=== PATIENT | male | born 1965 | race Caucasian/White ===

== ENCOUNTER 2018-08-03 11:45 | Emergency (ER) | payer OTHER, SELFPAY ==
[2018-08-03 12:08] VITALS: BP 137/95; PULSE 74; RESP 16; TEMP 36.7; O2SAT 98
--- NOTE | 2018-08-03 12:30 | DI.RAD_ITS ---
SYMPTOMS/DIAGNOSIS: SHOULDER PAIN S/P FALL LEFT HUMERUS AND LEFT SHOULDER: Multiple views were obtained. No acute fracture or dislocation is seen. Mild degenerative changes are seen at the acromioclavicular joint. The glenohumeral joint appears well maintained. The bones are intact and normally mineralized. The soft tissues are unremarkable. IMPRESSION: No acute fracture or dislocation.
--- NOTE | 2018-08-03 13:35 | W.ED.GENAD ---
Discharge Plan Disposition Patient Disposition: HOME Condition: Good Discharge Details Chief Complaint: Orthopedic Clinical Impression: Acute pain of left shoulder Primary Care Provider: Blaine Manuel ED Provider: Robert Ruiz Home Meds and New Rx's Prescriptions: Continue ranitidine HCl [Zantac Maximum Strength] 150 MG tablet 150 mg PO DAILY Qty: 90 RF: 4 sertraline [Zoloft] 100 MG tablet 1.5 - 2 tab PO DAILY Qty: 180 RF: 3 levothyroxine 100 MCG tablet 100 mcg PO DAILY Qty: 90 RF: 3 ibuprofen 800 MG tablet 1 tab PO TID PRNQty: 90 RF: 0 Discharge Instructions Instructions: RICE Therapy (ED), Shoulder Pain (ED) Additional Instructions: Feel free to return for any new or worsening symptoms. otherwise if not improving follow up with ortho in 2 weeks for recheck Stand Alone Forms: Work Release Referrals: Scott Geiger MD [ [facility] STAFF PHYSICIAN] - 2 weeks (if not improving ) Discharge Data Discharge Date/Time-TO BE ENTERED AT DEPARTURE: 08/03/18 13:46 Medical Decision Making Patient presenting to the emergency department for chief complaint of fall at work due to tripping over a piece of equipment and landing on his left shoulder. Patient states that when he fell he felt a pop sensation in his left shoulder. He states that he has injured the shoulder greater than 10 years ago had no problems since but now is having difficulty moving his shoulder with some radiation of discomfort down his arm. Patient denies any loss of consciousness, severe neck or back pain physical exam shows some soft tissue tenderness to the anterior superior shoulder along with some midshaft humeral and proximal humerus discomfort. Plan to perform radiological imaging due to decreased range of motion with arm mostly held in internal rotation. Patient took ibuprofen prior to coming in states his pain is tolerable at this point Review of radiological imaging shows no acute fracture so I feel the patient is able to be safely discharged and encouraged to follow-up with orthopedist if not improving over the next couple weeks. Due to patient hearing popping sensation and decreased range of motion there is concern for possible rotator cuff injury versus contusion. Patient encouraged to return for any new or worsening symptoms. After discussion of diagnosis and plan of care patient is no further needs, questions, or concerns and states clear understanding to return to the emergency department for any worsening symptoms. Imaging Data Radiologic Study: Attestation: I personally reviewed and interpreted this imaging study as follows: Imaging: X-Ray (Left shoulder and humerus) Radiologist's impression: No acute findings noted HPI General Mode of arrival: ambulatory. Date/Time Provider Initiated Documentation: 08/03/18 12:10. Limitations to Documentation: no limitations. Information obtained by: patient and RN notes reviewed. History of Present Illness 53 year old M presents to the emergency department with the chief complaint of left shoulder pain, described as mild, with intensity rated at 4. Quality is described as aching, and is localized to the left and upper extremity. Patient started experiencing this hour(s) (2) and it has been constant. No relieving factors improve symptom(s), No exacerbating factors reported . Patient notes no other symptoms.. Patient did receive the following treatments prior to arrival, NSAID Related Data Home Medications Medication Instructions Recorded Confirmed ranitidine HCl [Zantac Maximum 150 mg PO DAILY #90 tab 01/16/17 08/03/18 Strength] levothyroxine 100 mcg PO DAILY #90 tab-cap 01/19/18 08/03/18 sertraline [Zoloft] 1.5 - 2 tab PO DAILY #180 tab-cap 01/19/18 08/03/18 ibuprofen 1 tab PO TID PRN #90 tab 05/06/18 08/03/18 Previous Rx's Medication Instructions Recorded levothyroxine 100 mcg PO DAILY #90 tab-cap 01/19/18 sertraline [Zoloft] 1.5 - 2 tab PO DAILY #180 tab-cap 01/19/18 Allergies Allergy/AdvReac Type Severity Reaction Status Date / Time No Known Allergies Allergy Unverified 05/21/18 08:29 General Stated Complaint: Orthopedic PATRICIA: 3 Review of Systems ENT Denies neck pain Cardiovascular Denies chest pain and Denies dyspnea Respiratory Denies dyspnea Gastrointestinal Denies abdominal pain, Denies nausea and Denies vomiting Musculoskeletal Reports as per HPI, Denies back pain and Denies neck pain Neurologic Denies confusion and Denies sensory deficit Psychiatric Denies confusion PFSH Family History Mother Diabetes Alcohol abuse Essential hypertension Hyperlipidemia Father Alcohol abuse Neoplasm Sister Neoplasm Grandfather Diabetes Grandfather No problems noted. Grandmother No problems noted. Grandmother No problems noted. Sister Depression Son No problems noted. Daughter No problems noted. Social History Smoking/Tobacco Use Status: Never Surgical History BACK SURGERY Exam Const General: cooperative, no acute distress and not ill appearing Orientation: alert, awake and oriented x3 HENMT Mouth: moist mucous membranes Resp Effort & Inspection: normal respiratory effort, able to speak in complete sentences and no respiratory distress Cardio Rate: regular rate Rhythm: regular rhythm Skin General skin exam: no rashes or lesions noted Neuro General: alert, awake, oriented x3, moves all extremities and no focal motor deficits Sensory Exam: no sensory deficits noted Extrem Left upper extremity: shoulder/upper arm Details: tenderness Location: of the proximal humerus, of the mid-shaft humerus and over the deltoid bursa and abnormal ROM Details: pain with active ROM Details: in ABduction and in extension Course Vital Signs Temperature 36.7 C 08/03/18 12:08 Pulse 74 08/03/18 12:08 Respiratory Rate 16 08/03/18 12:08 Blood Pressure 137/95 H 08/03/18 12:08 Pulse Oximetry 98 08/03/18 12:08 Temperature 36.7 C 08/03/18 12:08 Temperature Source Temporal Artery Scan 08/03/18 12:08 Pulse 74 08/03/18 12:08 Respiratory Rate 16 08/03/18 12:08 Respiratory Effort 08/03/18 12:13 Blood Pressure 137/95 H 08/03/18 12:08 Blood Pressure Position Sitting 08/03/18 12:08 Pulse Oximetry 98 08/03/18 12:08 Oxygen Delivery Method Room Air 08/03/18 12:08 Oxygen Flow Rate 0 08/03/18 12:08 Pain Level 3 08/03/18 12:12
== END 2018-08-03 13:46 | disposition home or self-care (01) ==
PROVIDERS: Emergency Provider Nurse Practitioner Family; PCP Family Medicine
DX: M25.512 Pain in left shoulder (principal); W01.0XXA Fall on same level from slipping, tripping and stumbling without subsequent striking against object, initial encounter; Y99.0 Civilian activity done for income or pay
CPT/HCPCS: 99283; 73030; 73060; 99282

== ENCOUNTER 2018-08-13 12:27 | Outpatient (CLI) | payer BC, SELFPAY | END 2018-08-13 12:47 | PROVIDERS: PCP Family Medicine; Visit Provider Family Medicine | DX: E11.9 Type 2 diabetes mellitus without complications (principal) | CPT/HCPCS: 36415; 83036 ==

== ENCOUNTER 2018-10-29 04:21 | Emergency (ER) | payer OTHER, SELFPAY ==
[2018-10-29 04:29] VITALS: BP 139/91; PULSE 63; RESP 18; TEMP 36.8; O2SAT 98
--- NOTE | 2018-10-29 04:53 | DI.CT_ITS ---
SYMPTOM/DIAGNOSIS: TRAUMA CRANIAL CT: Noncontrast examination was performed. There is no evidence of an intra or extra axial hemorrhage, mass or fluid collection. The normal paiz/white matter differentiation is maintained. The ventricles ar normal. There is no skull fracture. The sinuses are normal. There is no mastoid effusion. Note is made of a region or hemorrhage and soft tissue swelling over the left frontal portion of the skull. SUMMARY: Minimal left forehead hematoma/soft tissue swelling, no acute intracranial abnormality seen.
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
[2018-10-29 06:25] LABS: Bilirubin Negative (Negative); Blood Small (Negative); Clarity Clear; Glucose Negative (Negative); Ketones Negative (Negative); Leukocyte Esterase Trace (Negative); Nitrite Negative (Negative); Urobilinogen 0.2 EU/dL (Up TO 0.2); pH 5.5 (5-8)
[2018-10-29 06:32] LABS: Bacteria Rare HPF (Negative); C & S Indicated? Yes; Casts Negative LPF (Negative); Crystals Negative HPF (Negative); Epithelial Cells Rare HPF (Negative); Mucus Trace (Negative)
[2018-10-29 06:55] VITALS: BP 128/70; PULSE 84; RESP 18; TEMP 36.7; O2SAT 98
== END 2018-10-29 06:54 | disposition home or self-care (01) ==
PROVIDERS: Emergency Provider Emergency Medicine; PCP Family Medicine
DX: S00.81XA Abrasion of other part of head, initial encounter (principal); V68.5XXA Driver of heavy transport vehicle injured in noncollision transport accident in traffic accident, initial encounter; Y99.0 Civilian activity done for income or pay; S06.9X9A Unspecified intracranial injury with loss of consciousness of unspecified duration, initial encounter; R07.81 Pleurodynia
CPT/HCPCS: 99284; 70450; 71046; 81003; 81015; 87086; L0172

== ENCOUNTER 2019-01-14 01:07 | Outpatient (CLI) | payer BC, SELFPAY ==
[2019-01-14 08:41] LABS: Anion Gap 9.3 mmol/L (3-11); BUN 24 mg/dL (7-18); CO2 27.7 mmol/L (21.0-32.0); CREATININE 1.04 mg/dL (0.70-1.30); Calcium 8.9 mg/dL (8.5-10.1); Chloride 104 mmol/L (98-107); Cholesterol 231 mg/dL (50-200); Glucose 109 mg/dL (70-100); HDL Cholesterol 31 mg/dL (40-60); LDL CHOLESTEROL 138 mg/dL (<100); Potassium 4.9 mmol/L (3.5-5.1); Sodium 141 mmol/L (136-145); TSH 1.17 uIU/mL (0.358-3.74); Triglyceride 354 mg/dL (30-150)
== END 2019-01-14 01:27 ==
PROVIDERS: PCP Family Medicine; Visit Provider Family Medicine
DX: E78.5 Hyperlipidemia, unspecified (principal); E03.9 Hypothyroidism, unspecified; E66.9 Obesity, unspecified
CPT/HCPCS: 36415; 80048; 80061; 83721; 84443

== ENCOUNTER 2019-06-10 09:07 | Outpatient (CLI) | payer BC, SELFPAY ==
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
== END 2019-06-10 09:27 ==
PROVIDERS: PCP Family Medicine; Visit Provider Student in an Organized Health Care Education/Training Program
DX: M25.512 Pain in left shoulder (principal); M19.012 Primary osteoarthritis, left shoulder
CPT/HCPCS: 73030

== ENCOUNTER 2019-06-16 01:31 | Outpatient (CLI) | payer BC, SELFPAY ==
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
== END 2019-06-16 01:51 ==
PROVIDERS: PCP Family Medicine; Visit Provider Student in an Organized Health Care Education/Training Program
DX: M25.512 Pain in left shoulder (principal); M75.102 Unspecified rotator cuff tear or rupture of left shoulder, not specified as traumatic; M62.512 Muscle wasting and atrophy, not elsewhere classified, left shoulder
CPT/HCPCS: 73221

== ENCOUNTER 2019-12-21 15:13 | Outpatient (CLI) | payer BC, SELFPAY ==
--- NOTE | 2019-12-21 15:00 | DI.RAD_ITS ---
EXAM: XR SHOULDER LT COMPLETE 2+V INDICATION: pain. COMPARISON: No exams were available for comparison TECHNIQUE: 2D digital imaging was performed. FINDINGS: There is mild spurring of the AC joint and tip of the acromion. Spurring is also seen at the greate r tuberosity and inferior glenoid. Glenohumeral joint space is well maintained. IMPRESSION: Mild degenerative changes.
== END 2019-12-21 15:33 ==
PROVIDERS: PCP Family Medicine; Visit Provider Student in an Organized Health Care Education/Training Program
DX: M25.512 Pain in left shoulder (principal); M19.012 Primary osteoarthritis, left shoulder
CPT/HCPCS: 73030

== ENCOUNTER 2019-12-30 02:35 | Outpatient (CLI) | payer BC, SELFPAY ==
--- NOTE | 2019-12-30 10:45 | DI.MRI_ITS ---
EXAM: MR UPPER JOINT LT WO CLINICAL HISTORY: Subacute significant left rotator cuff tear, S46.012D,STRAIN MUSCLE/TENDON. TECHNIQUE: Multiplanar multisequence MRI was performed. COMPARISON: XR shoulder LT complete 2+V from 06/10/2019 XR SHOULDER LT COMPLETE 2+V from 12/21/2019 FINDINGS: Again noted is severe supraspinatus muscle atrophy and full-thickness tear of the supraspinatus tendo n with retraction to the level of the AC joint. There is also severe infraspinatus muscle atrophy. There is marked tendon thinning but no definite retraction. The subscapularis, biceps and teres jesusita r tendons appear intact. There are degenerative changes of the AC joint with some inferior impingeme nt. There is also spurring at the tip of the acromion. The humeral head abuts the acromion. There is a minimal amount of fluid in the subacromial subdeltoid bursa as well as joint space. There are n o gross defects of the labrum. IMPRESSION: Chronic supraspinatus tear with severe muscle atrophy. There is also severe infraspinatus muscle atro phy. DATA REPOSITORY:
== END 2019-12-30 02:55 ==
PROVIDERS: PCP Family Medicine; Visit Provider Student in an Organized Health Care Education/Training Program
DX: S46.012D Strain of muscle(s) and tendon(s) of the rotator cuff of left shoulder, subsequent encounter (principal); M62.50 Muscle wasting and atrophy, not elsewhere classified, unspecified site
CPT/HCPCS: 73221

== ENCOUNTER 2020-01-04 12:39 | Outpatient (CLI) | payer BC, SELFPAY ==
[2020-01-04 16:59] LABS: Anion Gap 9.4 mmol/L (3-11); BUN 20 mg/dL (7-18); CO2 27.6 mmol/L (21.0-32.0); CREATININE 1.14 mg/dL (0.70-1.30); Calcium 8.8 mg/dL (8.5-10.1); Chloride 104 mmol/L (98-107); Glucose 92 mg/dL (74-106); Potassium 3.9 mmol/L (3.5-5.1); Sodium 141 mmol/L (136-145); TSH 1.32 uIU/mL (0.36-3.74); Uric Acid 7.6 mg/dL (3.5-7.2)
== END 2020-01-04 12:59 ==
PROVIDERS: PCP Family Medicine; Visit Provider Family Medicine
DX: Z00.00 Encounter for general adult medical examination without abnormal findings (principal); I10 Essential (primary) hypertension; M10.9 Gout, unspecified
CPT/HCPCS: 36415; 80048; 84443; 84550

== ENCOUNTER 2021-02-08 02:06 | Outpatient (CLI) | payer BC, SELFPAY ==
[2021-02-08 10:18] LABS: Hemoglobin A1C 6.5 % (<5.7)
[2021-02-08 11:04] LABS: Cholesterol 215 mg/dL (<200); HDL Cholesterol 30 mg/dL (40-60); TSH (W/Ref FT4) 0.93 uIU/mL (0.36-3.74); Triglyceride 428 mg/dL (<150)
[2021-02-08 11:22] LABS: LDL CHOLESTEROL 118 mg/dL (<100)
== END 2021-02-08 02:07 | disposition home or self-care (01) ==
LOC: LBO 02:07
PROVIDERS: PCP Family Medicine; Visit Provider Nurse Practitioner Family
DX: E03.9 Hypothyroidism, unspecified (principal); E78.5 Hyperlipidemia, unspecified; Z13.1 Encounter for screening for diabetes mellitus
CPT/HCPCS: 36415; 80061; 83721; 83036; 84443

== ENCOUNTER 2022-02-07 02:32 | Outpatient (CLI) | payer OTHER, SELFPAY ==
[2022-02-07 13:20] LABS: Hemoglobin A1C 6.3 % (<5.7)
[2022-02-07 14:59] LABS: Calculated LDL 82 mg/dL (<100); Cholesterol 181 mg/dL (<200); HDL Cholesterol 31 mg/dL (40-60); TSH 1.09 uIU/mL (0.36-3.74); Triglyceride 343 mg/dL (<150)
== END 2022-02-07 02:33 | disposition home or self-care (01) ==
LOC: LBO 02:32
PROVIDERS: PCP Nurse Practitioner Family; Visit Provider Nurse Practitioner Family
DX: E78.2 Mixed hyperlipidemia (principal); E11.9 Type 2 diabetes mellitus without complications; E03.9 Hypothyroidism, unspecified
CPT/HCPCS: 36415; 80061; 83036; 84443

== ENCOUNTER 2023-06-12 02:22 | Outpatient (CLI) | payer OTHER, SELFPAY ==
[2023-06-12 08:20] LABS: Hemoglobin A1C 6.3 % (<5.7)
[2023-06-12 08:24] LABS: Calculated LDL 47 mg/dL (<100); Cholesterol 146 mg/dL (<200); HDL Cholesterol 34 mg/dL (40-60); TSH (W/Ref FT4) 0.84 uIU/mL (0.36-3.74); Triglyceride 328 mg/dL (<150)
== END 2023-06-12 02:23 | disposition home or self-care (01) ==
LOC: LBO 02:22
PROVIDERS: PCP Nurse Practitioner Family; Visit Provider Nurse Practitioner Family
DX: E03.9 Hypothyroidism, unspecified (principal); E78.2 Mixed hyperlipidemia; E11.9 Type 2 diabetes mellitus without complications
CPT/HCPCS: 36415; 80061; 83036; 84443

== ENCOUNTER 2024-02-15 09:53 | Emergency (ER) | payer OTHER, SELFPAY ==
[2024-02-15 09:57] VITALS: BP 146/91; PULSE 88; RESP 18; TEMP 36.8; O2SAT 99
--- NOTE | 2024-02-15 10:30 | DI.RAD_ITS ---
Exam(s) XR SHOULDER RT COMPLETE 2+V EXAM: XR SHOULDER RT COMPLETE 2+V CLINICAL HISTORY: Pain. TECHNIQUE: 2D digital imaging was performed. COMPARISON: CR XR SHOULDER LT COMPLETE 2+V from 12/21/2019 FINDINGS: Six views No evidence of acute fracture nor dislocation. There are moderate degenerative changes in the glenoh umeral joint and mild upward subluxation of the humeral head in the glenoid fossa with diminution of the subacromial space. There is also a 3 millimeter calcific density in the subacromial space noted subjacent to the lateral aspect of the a chromium. There is also significant degenerative change in the AC joint with downgoing osteophytes on both sides the joint evident. There is a small osteophyte on the inferior aspect of the osseous glenoid. No large osteophyte at the humeral head level. Bone density normal. No osseous lesions. IMPRESSION: Moderate degenerative changes in the glenohumeral joint. Subacromial space findings as above. Suspe ct rotator cuff pathology. DATA REPOSITORY: RADIATION DOSE DELIVERED:
--- NOTE | 2024-02-15 11:46 | ED.GENADUL_ITS ---
Discharge Plan Disposition Patient Disposition: Home Condition: Stable Discharge Details Clinical Impression: Sprain of right shoulder Primary Care Provider: Daniel Jean ED Provider: Syeda Finn Home Meds and New Rx's Prescriptions: Continued (DME) blood-glucose meter [Advanced Glucose Meter] [facility] [place] See Rx Instructions .ROUTE .MEDSUPPLY Qty: 1 0RF Rx Instructions: Check sugar once daily allopurinol 300 mg tablet 300 mg PO DAILY Qty: 90 4RF atorvastatin 20 mg tablet 20 mg PO DAILY Qty: 90 4RF levothyroxine 100 mcg tablet 100 mcg PO DAILY Qty: 90 3RF tadalafil 10 mg tablet 10 mg PO DAILY PRN (Reason: sexual activity) Qty: 2 2RF Rx Instructions: administer approximately 30min before sexual activity; do not use more than 1 dose per 24hrs ofloxacin [Ocuflox] 0.3 % drops See Rx Instructions ophthalmic (eye) .COMPLEX Qty: 10 0RF Rx Instructions: put 2 drps into both eye(s) every 2 h x 2 days while awake, then 2 drps 4 times/day days 3-7 ophthalmic (eye) metformin 500 mg tablet extended release 24 hr 500 mg PO BID Qty: 180 3RF sertraline [Zoloft] 100 mg tablet 100 mg PO DAILY Qty: 90 3RF (DME) OneTouch Ultra Test Strip See Rx Instructions .Route Qty: 100 3RF Rx Instructions: Daily ibuprofen 800 mg tablet 800 mg PO TID PRN (Reason: pain) Qty: 30 0RF omeprazole 20 mg capsule,delayed release(DR/EC) 20 mg PO BID Qty: 180 4RF Discharge Instructions Instructions: Shoulder Sprain (ED) Additional Instructions: Use a sling as needed for comfort. X-ray shows you may have damaged your rotator cuff. You are placed on a care management list to assist you in getting follow-up care with orthopedics. They will call you with an appointment. Please take Tylenol or Ibuprofen with food every 4-6 hours as needed for pain and swelling. Rest, ice, compression, elevation while sitting or lying down. Stand Alone Forms: Work Release Referrals: Scott Geiger MD [ [facility] STAFF PHYSICIAN] - 1 week Discharge Data Discharge Date/Time-TO BE ENTERED AT DEPARTURE: 02/15/24 12:19 HPI General Mode of arrival: ambulatory . Date/Time Provider Initiated Documentation: 02/15/24 10:33 . Limitations to Documentation: no limitations . Information obtained by: patient, RN notes reviewed and old records reviewed . HPI Narrative: 58-year-old male presents to the ER with a chief complaint of right shoulder pain after working on a tire and jerking his right shoulder. X-ray shows possible rotator cuff impingement or injury. Will give a sling. Refer to orthopedics. Past medical history includes type 2 diabetes, hypothyroidism, GERD depression Related Data Home Medications Medication Instructions Recorded Confirmed blood-glucose meter (Advanced #1 ea 02/08/21 02/15/24 Glucose Meter) tadalafil 10 mg tablet 10 mg PO DAILY PRN sexual activity 02/20/22 02/15/24 #2 tabs metformin 500 mg tablet,extended 500 mg PO BID #180 tabs 05/01/23 02/15/24 release 24 hr sertraline 100 mg tablet (Zoloft) 100 mg PO DAILY #90 tab-caps 08/10/23 02/15/24 blood sugar diagnostic (OneTouch #100 ea 10/14/23 02/15/24 Ultra Test strips) ibuprofen 800 mg tablet 800 mg PO TID PRN pain #30 tabs 10/16/23 02/15/24 omeprazole 20 mg capsule,delayed 20 mg PO BID #180 caps 11/11/23 02/15/24 release allopurinol 300 mg tablet 300 mg PO DAILY #90 tabs 12/25/23 02/15/24 atorvastatin 20 mg tablet 20 mg PO DAILY #90 tabs 12/25/23 02/15/24 levothyroxine 100 mcg tablet 100 mcg PO DAILY #90 tab-caps 12/25/23 02/15/24 ofloxacin 0.3 % eye drops (Ocuflox) See Rx Instructions ophthalmic 01/15/24 02/15/24 (eye) .COMPLEX #10 mL Previous Rx's Medication Instructions Recorded blood-glucose meter (Advanced #1 ea 02/08/21 Glucose Meter) tadalafil 10 mg tablet 10 mg PO DAILY PRN sexual activity 02/20/22 #2 tabs metformin 500 mg tablet,extended 500 mg PO BID #180 tabs 05/01/23 release 24 hr sertraline 100 mg tablet (Zoloft) 100 mg PO DAILY #90 tab-caps 08/10/23 blood sugar diagnostic (OneTouch #100 ea 10/14/23 Ultra Test strips) ibuprofen 800 mg tablet 800 mg PO TID PRN pain #30 tabs 10/16/23 omeprazole 20 mg capsule,delayed 20 mg PO BID #180 caps 11/11/23 release allopurinol 300 mg tablet 300 mg PO DAILY #90 tabs 12/25/23 atorvastatin 20 mg tablet 20 mg PO DAILY #90 tabs 12/25/23 levothyroxine 100 mcg tablet 100 mcg PO DAILY #90 tab-caps 12/25/23 ofloxacin 0.3 % eye drops (Ocuflox) See Rx Instructions ophthalmic 01/15/24 (eye) .COMPLEX #10 mL Allergies Allergy/AdvReac Type Severity Reaction Status Date / Time No Known Allergies Allergy Verified 02/15/24 11:12 General Stated Complaint: Orthopedic PATRICIA: 4 Review of Systems All systems reviewed & are unremarkable except as noted in HPI and below Musculoskeletal Musculoskeletal: Reports as per HPI and Reports arthralgias Exam Extrem Right upper extremity: no joint enlargement and shoulder/upper arm Details: tenderness Location: of the A-C joint Course Vital Signs Vital signs: Vital Signs Temperature 36.8 C 02/15/24 09:57 Pulse 88 02/15/24 09:57 Respiratory Rate 18 02/15/24 09:57 Blood Pressure 146/91 H 02/15/24 09:57 Pulse Oximetry 99 02/15/24 09:57 Temperature 36.8 C 02/15/24 09:57 Temperature Source Temporal Artery Scan 02/15/24 09:57 Pulse 88 02/15/24 09:57 Respiratory Rate 18 02/15/24 09:57 Respiratory Effort Normal, Non-Labored 02/15/24 11:10 Blood Pressure 146/91 H 02/15/24 09:57 Blood Pressure Position Supine 02/15/24 09:57 Pulse Oximetry 99 02/15/24 09:57 Oxygen Delivery Method Room Air 02/15/24 09:57 Oxygen Flow Rate 0 02/15/24 09:57 Medical Decision Making 58-year-old male presents to the ER with a chief complaint of right shoulder pain after working on a tire prior to arrival. Distal CMS intact. Does have a history of arthritis. On x-ray shows some osteoarthritic degenerative changes and possible rotator cuff pathology. Please see image results below. Patient given a sling, placed on orthopedic follow-up list discussed home care will give a work note. He is right-hand dominant. No other injuries no signs of dislocation. X-ray results noted below. Patient referred to orthopedics given a sling. This text was generated using [employer] Softwareation system, please disregard any oddities of phrase or misspellings. Imaging Data Radiologic Study: Imaging: X-Ray Radiologist's impression: EXAM: XR SHOULDER RT COMPLETE 2+V CLINICAL HISTORY: Pain. TECHNIQUE: 2D digital imaging was performed. COMPARISON: CR XR SHOULDER LT COMPLETE 2+V from 12/21/2019 FINDINGS: Six views No evidence of acute fracture nor dislocation. There are moderate degenerative changes in the glenohumeral joint and mild upward subluxation of the humeral head in the glenoid fossa with diminution of the subacromial space. There is also a 3 millimeter calcific density in the subacromial space noted subjacent to the lateral aspect of the a chromium. There is also significant degenerative change in the AC joint with downgoing osteophytes on both sides the joint evident. There is a small osteophyte on the inferior aspect of the osseous gl enoid. No large osteophyte at the humeral head level. Bone density normal. No osseous lesions. IMPRESSION: Moderate degenerative changes in the glenohumeral joint. Subacromial space findings as above. Suspect rotator cuff pathology. Quality:SDOH Health Related Social Needs: No Data to Display PFSH All Active Problems (Updated 02/15/24 @ 12:05 by Syeda Finn NP) Sprain of right shoulder (Acute) Erectile dysfunction (Acute) Diabetes (Chronic) Hyperlipemia (Acute) Left rotator cuff tear (Acute) Injection: 09/26/2019 Rotator cuff tear arthropathy of left shoulder (Acute) Tendonitis of long head of biceps brachii of right shoulder (Acute) Rotator cuff tear arthropathy of right shoulder (Acute) Tendinitis of long head of biceps brachii of left shoulder (Acute) Left carpal tunnel syndrome (Acute) Gout (Chronic) Varicose veins of lower extremity (Chronic) Spinal stenosis of lumbar region (Chronic) disk herniation L3-4 Polyp of colon, adenomatous (Chronic) T.A.; familial polyposis Obesity (Chronic) Hypothyroidism (acquired) (Chronic) Gastroesophageal reflux disease (Chronic) Family history of colon cancer (Chronic) father in his 50's; sister in her 40's Depressive disorder (Chronic) Left lumbar radiculopathy (Chronic) Medical History Depression GERD (gastroesophageal reflux disease) Hypothyroid Surgical History BACK SURGERY L4-L5 Family History Mother , 80 Diabetes Alcohol abuse Essential hypertension Hyperlipidemia Father , 56 Alcohol abuse Colon cancer Liver cancer Sister , 51 Alcohol abuse Colon cancer Depression Essential hypertension Maternal Grandfather Diabetes Paternal Grandfather No problems noted. Maternal Grandmother No problems noted. Paternal Grandmother No problems noted. Sister , 54 Depression Son No problems noted. Daughter No problems noted. 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 Pets and animals: Yes Pets and animals: cat(s) and dog(s) Sexually active: No Do you think of yourself as: straight/heterosexual Current gender identity: male What is your relationship status?: How often do you talk on the phone with friends or family?: twice per week How often do you get together with friends or relatives?: once per week How often do you attend hoahaoism or yazidi services?: 1-3 times per year Do you belong to any clubs or organized social groups?: yes Panel score (0-1 are the most socially isolated patients): 3 What type of physical activity do you participate in: walking Duration: 15-30 minutes/day Frequency: 5-6 times per week Monika/Yazidism: Evangelical Special monika needs: No Seatbelt use: sometimes Helmet use: Yes Helmet use: always Drive intox or ride w/intox transit driver: No Do you feel safe in your relationship?: Yes
== END 2024-02-15 12:19 | disposition home or self-care (01) ==
PROVIDERS: Emergency Provider Registered Nurse Emergency; PCP Nurse Practitioner Family
DX: S43.401A Unspecified sprain of right shoulder joint, initial encounter (principal); E11.9 Type 2 diabetes mellitus without complications; E78.5 Hyperlipidemia, unspecified; Z79.84 Long term (current) use of oral hypoglycemic drugs; X50.9XXA Other and unspecified overexertion or strenuous movements or postures, initial encounter; Y93.89 Activity, other specified; Y92.89 Other specified places as the place of occurrence of the external cause
CPT/HCPCS: 99283; 73030

== ENCOUNTER → 2024-03-10 03:07 | Outpatient (CLI) | payer OTHER, SELFPAY ==
--- NOTE | 2024-03-10 08:30 | DI.MRI_ITS ---
Exam(s) MR UPPER JOINT RT WO EXAM: MR UPPER JOINT RT WO CLINICAL HISTORY: R SHOULDER INJURY, rt rotator cuff tear, sprain, S46.011D, S43.401A. TECHNIQUE: Multiplanar multisequence MRI was performed. COMPARISON: Plain films 15 February 2024 FINDINGS: The fat-suppressed T2 weighted sequences are limited by severe image noise. BONES: There is no fracture or contusion pattern. Degenerative cysts in the glenoid. JOINTS:The acromioclavicular joint shows mild to moderate inferior spurring. Spurring at the tip of the acromion. Humeral head high riding, articulating with the undersurface of the acromion. The gle nohumeral joint shows cartilage thinning. Small joint effusion. TENDONS: Supraspinatus: Full-thickness tear with retraction to the level of the glenoid. Severe supraspinat us muscle atrophy. Infraspinatus: Severe infraspinatus muscle atrophy. The tendon appears intact. Subscapularis: Full-thickness tear with retraction. Teres [place]: Unremarkable. Biceps and [place]: Unremarkable. Muscles: Severe supraspinatus and infraspinatus muscle atrophy. Edema seen in the upper portion of th e short head of the biceps muscle which could indicate muscle strain/tear. GLENOID LABRUM: Degenerative changes. SOFT TISSUES: Unremarkable. OTHER: Small amount of fluid in subcoracoid bursa. IMPRESSION: Full-thickness tear with retraction the supraspinatus tendon with severe muscle atrophy, consistent w ith chronic tear. Severe muscle atrophy of the infraspinatus without evidence of tear. Full-thickness tear with retraction of the subscapularis tendon. Edema in the upper short head of the biceps muscle could indicate partial muscle tear. DATA REPOSITORY:
== END ==
PROVIDERS: PCP Nurse Practitioner Family; Visit Provider Student in an Organized Health Care Education/Training Program
DX: M75.121 Complete rotator cuff tear or rupture of right shoulder, not specified as traumatic (principal)
CPT/HCPCS: 73221

== ENCOUNTER → 2024-06-03 00:31 | Outpatient (CLI) | payer OTHER, SELFPAY ==
--- NOTE | 2024-06-03 07:15 | DI.MRI_ITS ---
Exam(s) MR LUMBAR SPINE WO EXAM: MR LUMBAR SPINE WO CLINICAL HISTORY: Previous surgery, failing PT, worsening pain,SPINAL STENOSIS,LT RADICULOPAT. TECHNIQUE: Multiplanar multisequence MRI of the Lumbar spine was performed. COMPARISON: MR MRI - LUMBAR SPINE WO CONTRAST from 10/24/2016 FINDINGS: Bones: The last intervertebral disc space is designated the L5/S1 level for the numbering purpose of this examination. The vertebral body heights are well maintained. There is a right convex scoliosis centered at the L2-L3 level. There are degenerative endplate signal changes seen in the lumbar spin e particularly in the right side at L5-S1. Cord: The conus tip ends at the T12 level. It is of normal size and signal intensity. T12-L1: No disc herniations or bulges are present. No central spinal canal or neural foraminal stenos is. L1-2: No disc herniations or bulges are present. No central spinal canal or neural foraminal stenosis . L2-3: There is a diffuse disc bulge. No significant central spinal canal stenosis is present. Mild- to-moderate right and moderate left neural foraminal stenosis is present. L3-4: There is a diffuse disc bulge. There are degenerative changes of the facets. Moderate central spinal canal stenosis is seen. Mild right and moderately severe left neural foraminal stenosis is p resent. L4-5: There is a diffuse disc bulge. There are degenerative changes of the facets. Kyed-du-llxullpn central spinal canal stenosis is present. There is marked right neural foraminal stenosis and mild left neural foraminal stenosis. L5-S1: No disc herniations or bulges are present. There are degenerative changes of the facets. No s ignificant central spinal canal stenosis.There is moderately severe right neural foraminal stenosis. No significant left neural foraminal stenosis. Soft tissues: The visualized SI joints and sacrum are well maintained. There is fatty atrophy of the paraspinal muscles. IMPRESSION: Multilevel degenerative changes are present throughout the lumbar spine resulting in central spinal c anal and neural foraminal stenosis as described above. The findings are most marked at the L3-L4 and L4-L5 disc levels. DATA REPOSITORY:
== END ==
PROVIDERS: PCP Nurse Practitioner Family; Visit Provider Nurse Practitioner Family
DX: M54.16 Radiculopathy, lumbar region (principal); M48.061 Spinal stenosis, lumbar region without neurogenic claudication
CPT/HCPCS: 72148

== ENCOUNTER 2024-06-06 12:36 | Outpatient (CLI) | payer OTHER, SELFPAY ==
[2024-06-06 12:53] LABS: ALT 37 U/L (16-63); AST 18 U/L (15-37); Albumin 3.3 g/dL (3.4-5.0); Alkaline Phosphatase 68 U/L (46-116); Anion Gap 8.8 mmol/L (3-11); BUN 18 mg/dL (7-18); Bilirubin, Total 0.39 mg/dL (0.2-1.0); CO2 29.2 mmol/L (21.0-32.0); Chloride 106 mmol/L (98-107); Estimated GFR 86.16 (mL/min/1.73m2); Glucose 163 mg/dL (74-106); Sodium 144 mmol/L (136-145); Total Protein 7.9 g/dL (6.4-8.2)
[2024-06-06 22:35] LABS: PSA, Screening 6.6 ng/mL (<=4.5)
== END 2024-06-06 12:37 | disposition home or self-care (01) ==
LOC: LBO 12:36
PROVIDERS: PCP Nurse Practitioner Family; Visit Provider Nurse Practitioner Family
DX: R31.9 Hematuria, unspecified (principal); E11.9 Type 2 diabetes mellitus without complications
CPT/HCPCS: 36415; 80053; 84153

== ENCOUNTER 2024-07-28 01:26 | Outpatient (CLI) | payer OTHER, SELFPAY ==
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
[2024-07-28 08:20] LABS: CREATININE 1.1 mg/dL (0.70-1.30); Estimated GFR 76.85 (mL/min/1.73m2)
[2024-07-28 08:35] LABS: Calculated LDL 62 mg/dL (<100); Cholesterol 166 mg/dL (<200); HDL Cholesterol 37 mg/dL (40-60); TSH (W/Ref FT4) 1.47 uIU/mL (0.36-3.74); Triglyceride 339 mg/dL (<150)
[2024-07-28] MEDS: Normal Saline - Diluent 50 ML VIAL IJ (08:44)
[2024-07-28] MEDS: Omnipaque 350 MG/ML 100 ML BTL IJ (08:45)
== END 2024-07-28 01:46 ==
LOC: DI 01:26
PROVIDERS: PCP Nurse Practitioner Family; Visit Provider Urology
DX: E03.9 Hypothyroidism, unspecified (principal); Z13.220 Encounter for screening for lipoid disorders; E78.2 Mixed hyperlipidemia; R31.0 Gross hematuria
CPT/HCPCS: 80061; 74178; 82565; 84443; J3490

== ENCOUNTER 2024-09-09 15:37 | Outpatient (CLI) | payer OTHER, SELFPAY ==
[2024-09-12 20:27] LABS: Free PSA/PSA Ratio 0.22 ratio
== END 2024-09-09 15:38 | disposition home or self-care (01) ==
LOC: LBO 15:39
PROVIDERS: PCP Nurse Practitioner Family; Visit Provider Urology
DX: R97.20 Elevated prostate specific antigen [PSA] (principal)
CPT/HCPCS: 36415; 84154

== ENCOUNTER 2024-12-19 14:29 | Outpatient (CLI) | payer OTHER, SELFPAY ==
[2024-12-19 14:35] VITALS: BP 134/88; PULSE 68; RESP 20; TEMP 36.7; O2SAT 99
--- NOTE | 2024-12-19 14:44 | PDOC.PAIN ---
Date of service: 12/19/24 Time of Service: 15:26 Pain Managment Procedure Note Procedure Note Procedure Note: Lumbar Transforaminal Epidural Steroid Injection ? Location: LEFT L2 and L3 ? Pre-procedure Diagnosis: M54.17-Radiculopathy, lumbosacral region M54.16 Radiculopathy, lumbar region ? Post-procedure Diagnosis:? The same as above ? Sedation:? none ? Estimated blood loss:? less than 2 cc ? Surgeon:? Ez Weldon MD COMMENT: Patient has left foraminal stenosis at L2 and L3 with pain radiating to his left thigh ? Procedure Detail:?? The procedure and potential risks were explained to the patient and informed written consent was obtained. The patient was escorted to the procedure room and placed in the prone position. Pillows were utilized for proper positioning and comfort. Time out was performed in the procedure room with nursing staff confirming the patient's identity, procedure to be performed, allergies, and any blood thinning or anti-platelet medications. The patient's lower back was prepped with ChloraPrep and draped in a sterile fashion. Sterile gloves were used, a face mask was worn, and new single dose vials of all medications were used with the top being swabbed with alcohol and given time to dry prior to withdrawal of medication. A right-sided oblique fluoroscopic view was obtained, with visualization of L2-3. Lidocaine 1% was used to anesthetize the skin. The tip of a 22-gauge, Quincke needle was advanced toward the 6 o'clock position of the superior pedicle at the target level.? It was advanced just under the pedicle to the neural foramen L2-3. Correct needle placement was confirmed through review of the fluoroscopy. Next, following negative aspiration, 1cc's of Omnipaque 240 contrast was injected under live fluoroscopy which showed good flow throughout the epidural space and no evidence of vascular flow or flow into adjacent compartments. Next, following negative aspiration, 15mg of preservative-free dexamethasone and 0.5ml of 0.5% bupivacaine was injected. The needle was gently removed.? The procedure was also performed in the same fashion at left L3-4.? The patient tolerated the procedure well.? Permanent images saved and recorded. Plan:? Follow up prn PAIN: PRE PROCEDURE 01/16 POST PROCEDURE 11/18 COMMENT: consider repeat as needed
--- NOTE | 2024-12-19 15:19 | DI.RAD_ITS ---
Exam(s) XR PAIN CLINIC LUMBAR SP 2V EXAM: XR PAIN CLINIC LUMBAR SP 2V CLINICAL HISTORY: DX: Lumbar Radiculopathy. TECHNIQUE: Fluoroscopy was provided for the referring physician for guidance with performing pain cl inic injection procedure. COMPARISON: No exams were available for comparison FINDINGS: Please see procedure note for details. Fluoro time: 58.5 seconds RADIATION DOSE DELIVERED: Ka,r=48.6 mGy
[2024-12-19] MEDS: Nerve Block Tray 1 EACH MC (15:40)
[2024-12-19] MEDS: Dexamethasone Sod. Phos./Pres-Free 10 MG/ML VIAL IJ (15:40)
[2024-12-19] MEDS: Omnipaque 240 MG/ML 50 ML BTL IJ (15:40)
[2024-12-19] MEDS: Bupivacaine 0.5% Pres-Free 10 ML VIAL IJ (15:41)
== END 2024-12-19 14:30 | disposition home or self-care (01) ==
LOC: PC 14:30
PROVIDERS: PCP Nurse Practitioner Family; Visit Provider Anesthesiology Pain Medicine
DX: M54.17 Radiculopathy, lumbosacral region (principal); M54.16 Radiculopathy, lumbar region
CPT/HCPCS: 64483; 64484; 00123; 72100; J0665; J1100; Q9967

== ENCOUNTER 2025-01-24 15:45 | Outpatient (CLI) | payer OTHER, SELFPAY ==
--- NOTE | 2025-01-24 13:10 | DI.RAD_ITS ---
Exam(s) XR SHOULDER RT COMPLETE 2+V EXAM: XR SHOULDER RT COMPLETE 2+V CLINICAL HISTORY: RIGHT SHOULDER PAIN. TECHNIQUE: 2D digital imaging was performed of the right shoulder. Two images were obtained. Grash ey and Y views were obtained. COMPARISON: CR XR SHOULDER RT COMPLETE 2+V from 02/15/2024 FINDINGS: BONES: No acute fracture is present. No bony destructive lesion is seen. JOINTS: No dislocation present. There are [id number] degenerative changes seen at both the acro mioclavicular and glenohumeral joint. Appears to be mild superior subluxation of the humeral head re lative to the glenoid which can be seen with rotator cuff tear. Please correlate clinically. If the re is clinical concern, an MRI may be obtained for further evaluation. SOFT TISSUE: Normal. IMPRESSION: Degenerative changes of the shoulder as described above. DATA REPOSITORY: RADIATION DOSE DELIVERED:
== END 2025-01-24 15:46 | disposition home or self-care (01) ==
LOC: DIORS 15:45
PROVIDERS: PCP Nurse Practitioner Family; Visit Provider Student in an Organized Health Care Education/Training Program
DX: S46.211A Strain of muscle, fascia and tendon of other parts of biceps, right arm, initial encounter (principal); X58.XXXA Exposure to other specified factors, initial encounter
CPT/HCPCS: 73030

== ENCOUNTER 2025-03-06 11:14 | Outpatient (CLI) | payer MEDICAID, SELFPAY ==
[2025-03-08 16:46] LABS: Free PSA/PSA Ratio 0.15 ratio
== END 2025-03-06 11:15 | disposition home or self-care (01) ==
LOC: LBO 11:15
PROVIDERS: PCP Nurse Practitioner Family; Visit Provider Urology
DX: R97.20 Elevated prostate specific antigen [PSA] (principal)
CPT/HCPCS: 36415; 84154

== ENCOUNTER 2025-03-30 14:50 | Outpatient (CLI) | payer MEDICAID, SELFPAY ==
[2025-03-30 15:19] LABS: CREATININE 1.1 mg/dL (0.70-1.30); Estimated GFR 76.37 (mL/min/1.73m2)
== END 2025-03-30 14:51 | disposition home or self-care (01) ==
LOC: LBO 14:50
PROVIDERS: PCP Nurse Practitioner Family; Visit Provider Urology
DX: Z01.812 Encounter for preprocedural laboratory examination (principal); R97.20 Elevated prostate specific antigen [PSA]
CPT/HCPCS: 36415; 82565

== ENCOUNTER 2025-07-06 13:57 | Outpatient (CLI) | payer OTHER, SELFPAY ==
[2025-07-06 11:16] LABS: ALT 38 U/L (16-63); AST 20 U/L (15-37); Albumin 3.3 g/dL (3.4-5.0); Alkaline Phosphatase 66 U/L (46-116); Anion Gap 11.5 mmol/L (3-11); BUN 17 mg/dL (7-18); Bilirubin, Total 0.6 mg/dL (0.2-1.0); CO2 25.5 mmol/L (21.0-32.0); Calcium 8.9 mg/dL (8.5-10.1); Calculated LDL 60 mg/dL (<100); Chloride 102 mmol/L (98-107); Cholesterol 166 mg/dL (<200); Estimated GFR 76.37 (mL/min/1.73m2); Glucose 205 mg/dL (74-106); HDL Cholesterol 32 mg/dL (>or=40); Potassium 3.8 mmol/L (3.5-5.1); Sodium 139 mmol/L (136-145); TSH (W/Ref FT4) 1.63 uIU/mL (0.36-3.74); Total Protein 7.3 g/dL (6.4-8.2); Triglyceride 373 mg/dL (<150)
== END 2025-07-06 13:58 | disposition home or self-care (01) ==
LOC: LBO 13:57
PROVIDERS: Urology; PCP Nurse Practitioner Family; Visit Provider Nurse Practitioner Family
DX: Z13.220 Encounter for screening for lipoid disorders (principal); E11.9 Type 2 diabetes mellitus without complications; E03.9 Hypothyroidism, unspecified; R97.20 Elevated prostate specific antigen [PSA]
CPT/HCPCS: 36415; 80053; 80061; 84154; 84443